=== PATIENT | male | born 1995 | race Hispanic/Latino ===

== ENCOUNTER 2023-06-06 05:43 | Emergency (ER) | payer BC, MEDICAID ==
[~2023-06-06] VITALS: Ht 177.8 cm; Wt 86.2 kg
[2023-06-06 06:39] LABS: APPEARANCE,URINE CLEAR (CLEAR); BILIRUBIN,URINE NEGATIVE (NEGATIVE); COLOR,URINE LIGHT-YELLOW (YELLOW); GLUCOSE, URINE (UA) >=1000 mg/dL (NEGATIVE); KETONES,URINE 20 mg/dL (NEGATIVE); LEUKOCYTE ESTERASE ,URINE NEGATIVE Leu/uL (NEGATIVE); NITRATE,URINE NEGATIVE (NEGATIVE); OCCULT BLOOD,URINE NEGATIVE (NEGATIVE); PROTEIN,URINE NEGATIVE (NEGATIVE); UROBILINOGEN,URINE 0.2 mg/dL (0.2-1.0)
[2023-06-06 06:44] LABS: ADD UA MICROSCOPIC YES
[2023-06-06 06:54] LABS: MUCUS,URINE RARE LPF (None Seen); RBC,URINE 0-1 /HPF (0-1); WBC,URINE 0-1 /HPF (0-1)
[2023-06-06] MEDS ORDERED: ORPHENADRINE CITRATE 30 MG/ML ML IVP ONE (07:00)
[2023-06-06] MEDS ORDERED: MORPHINE 4 MG SYG IVP ONE (07:00)
[2023-06-06 07:07] LABS: ABG OXYGEN SATURATION 17.9 % (95.0-99.0); DEVICE COMMENT VBGJESSE; HCO3,VENOUS BLOOD GAS 24.9 (21.0-28.0); PCO2,VENOUS BLOOD GAS 51 (35-48); PH,VENOUS BLOOD GAS 7.309 (7.350-7.450); PO2,VENOUS BLOOD GAS 15.6 mmHg (35.0-45.0); VENT MODE, BG VBG (ROOM AIR)
[2023-06-06 07:23] LABS: BASOPHILS # (AUTO) 0.04 K/uL (0.00-0.20); BASOPHILS % (AUTO) 0.3 % (0.0-5.0); EOSINOPHILS # (AUTO) 0.02 K/uL (0.00-0.70); EOSINOPHILS % (AUTO) 0.2 % (0.0-8.0); HEMATOCRIT 39.2 % (42-54); IMMATURE GRANULOCYTE ABSOLUTE 0.18 K/uL (0-1); LYMPHOCYTES # (AUTO) 2.5 K/uL (1.0-4.8); LYMPHOCYTES % (AUTO) 20.8 % (21.0-51.0); MEAN CORPUSCULAR HEMOGLOBIN 30.7 pg (27.0-33.0); MEAN CORPUSCULAR HGB CONC 36.2 g/dL (32.0-36.0); MEAN CORPUSCULAR VOLUME 84.8 fL (79-99); MONOCYTES # (AUTO) 1.3 K/uL (0.1-1.0); MONOCYTES % (AUTO) 10.7 % (3.0-13.0); NEUTROPHILS # (AUTO) 7.8 K/uL (1.8-7.7); NEUTROPHILS % (AUTO) 66.5 % (40.0-77.0); PLATELET COUNT (AUTO) 325 K/uL (130-400); RED BLOOD CELL COUNT(AUTO) 4.62 MIL/uL (4.50-6.20); RED CELL DISTRIBUTION WIDTH 11.9 % (11.0-15.5); WHITE BLOOD COUNT (AUTO) 11.8 K/uL (4.8-10.8)
[2023-06-06] MEDS ORDERED: PROMETHAZINE HCL 25 MG/ML 1ML AMPULE IM ONE (07:32)
[2023-06-06 07:42] LABS: BILIRUBIN,TOTAL 0.8 mg/dL (0.2-1.0); CREATININE 0.8 mg/dL (0.5-1.5); POTASSIUM 3.6 mmol/L (3.5-5.1); TOTAL PROTEIN, SERUM 7.5 g/dL (6.0-8.3)
[2023-06-06] MEDS ORDERED: KETOROLAC 30MG VIAL (30MG/ML) IVP ONE (09:30)
[2023-06-06] MEDS ORDERED: FAMOTIDINE 20MG VIAL IV ONE (09:30)
[2023-06-06] MEDS ORDERED: INSULIN HUMULIN R 100 UNIT/ML 3ML IJ ONE (10:00)
[2023-06-06 10:47] VITALS: BP 150/89; PULSE 68; RESP 18; O2SAT 100
== END 2023-06-06 10:53 | disposition home or self-care (01) ==
LOC: EDH 05:43
DX: R10.32 Left lower quadrant pain (principal); M79.18 Myalgia, other site; E11.65 Type 2 diabetes mellitus with hyperglycemia; Z90.49 Acquired absence of other specified parts of digestive tract; Z88.8 Allergy status to other drugs, medicaments and biological substances
CPT/HCPCS: 99284; 74176; 96374; 96375 ×2; 80053; 82803; 85025; 82010; 81001; 36415; 36600; J1815; J3490; J2270; J1885; J2550; J2360

== ENCOUNTER 2025-01-12 22:23 | Emergency (ER) | payer BC, OTHER ==
[~2025-01-12] VITALS: Ht 177.8 cm; Wt 85.7 kg
[2025-01-12 22:31] VITALS: TEMP 98.9
--- NOTE | 2025-01-12 22:35 | ERN ---
General Stated Complaint: NAUSEA, VOMITING ONSET 1400 Time Seen by MD: 22:26 History of Present Illness Initial Comments Patient is a 29-year-old male with diabetes who has had nausea and vomiting for the last 8 hours. During this episode he also had a bowel movement. He is concerned because two weeks ago he was thrown from a horse and after having his right knee repaired he experienced internal bleeding. He is here to be sure that he does not have an intra-abdominal problem more severe than a simple gastroenteritis. He is taking a variety of medications for his diabetes and also lisinopril to protect his kidneys. He is not sure why his kidneys need protecting and for only a short duration of lisinopril. Patient does state that he has chills and sweats but no fevers. Allergies: Coded Allergies: doxycycline (Unverified Allergy, Mild, 01/12/25) HIVES Past Medical History Past Medical History: Diabetes-Type I Medical History Other: Internal bleeding after trauma. Surgical History Other: Right knee arthroplasty. Constitutional: (+) chills, (+) diaphoresis EENTM: (-) eye pain, (-) blurred vision, (-) tearing, (-) double vision, (-) ear pain, (-) ear discharge, (-) nose pain, (-) nose congestion, (-) throat pain, (-) Throat swelling, (-) mouth pain, (-) tooth pain, (-) mouth swelling, (-) other documentation Respiratory: (-) cough, (-) orthopnea, (-) short of breath, (-) stridor, (-) wheezing, (-) other documentation Cardiovascular: (-) chest pain, (-) edema, (-) palpitations, (-) syncope, (-) dyspnea on exertion, (-) other documentation Gastrointestinal/Abdominal: (+) nausea, (+) vomiting Musculoskeletal: (-) Neck pain, (-) back pain, (-) Flank Pain, (-) joint pain, (-) joint swelling, (-) muscle pain, (-) muscle stiffness, (-) gout, (-) other documentation Skin: (-) laceration, (-) contusion, (-) abrasion, (-) abscess, (-) rash, (-) change in color, (-) change in hair, (-) change in nails, (-) diaphoresis, (-) dryness, (-) other documentation Neuro: (-) altered mental status, (-) headache, (-) syncope, (-) paralysis, (-) numbness, (-) seizure, (-) pre-existing deficit, (-) tremors, (-) weakness, (-) dizziness, (-) slurred speech, (-) vertigo, (-) other documentation Physical Exam General Appearance: (+) no apparent distress Orientation: (+) oriented x 3 Head/Face Trauma: No Eye: bilateral eye normal inspection, bilateral eye PERRL, bilateral eye EOMI Ear, Nose, Throat: (+) hearing grossly normal, (+) normal ENT inspection, (+) normal pharynx Neck: (+) normal inspection, (+) supple, (+) full range of motion Respiratory: (+) chest non-tender, (+) lungs clear, (+) well ventilated Heart: (+) no gallop, (+) tachycardia Vascular: (+) no edema Gastrointestinal: (+) soft, (+) non-tender Gastrointestinal Comment Bowel sounds faint and infrequent. Extremities Comment Scar right medial knee healing. Results Laboratory and Microbiology Lab and Micro Result Laboratory Tests Test 01/12/25 22:40 01/13/25 01:00 01/13/25 01:55 01/13/25 02:00 White Blood Count 12.9 K/uL (4.8-10.8) H Red Blood Count 4.96 MIL/uL (4.50-6.20) Hemoglobin 13.6 g/dL (14.0-18.0) L Hematocrit 42.3 % (42-54) Mean Corpuscular Volume 85.3 fL (79-99) Mean Corpuscular Hemoglobin 27.4 pg (27.0-33.0) Mean Corpuscular Hemoglobin Concent 32.2 g/dL (32.0-36.0) Red Cell Distribution Width 13.7 % (11.0-15.5) Platelet Count 210 K/uL (130-400) Mean Platelet Volume 11.6 fL (7.5-10.5) H Immature Granulocyte % (Auto) 0.4 % (0-1) Neutrophils (%) (Auto) 87.7 % (40.0-77.0) H Lymphocytes (%) (Auto) 7.1 % (21.0-51.0) L Monocytes (%) (Auto) 4.4 % (3.0-13.0) Eosinophils (%) (Auto) 0.2 % (0.0-8.0) Basophils (%) (Auto) 0.2 % (0.0-5.0) Neutrophils # (Auto) 11.4 K/uL (1.8-7.7) H Lymphocytes # (Auto) 0.9 K/uL (1.0-4.8) L Monocytes # (Auto) 0.6 K/uL (0.1-1.0) Eosinophils # (Auto) 0.02 K/uL (0.00-0.70) Basophils # (Auto) 0.02 K/uL (0.00-0.20) Absolute Immature Granulocyte (auto 0.05 K/uL (0-1) Nucleated Red Blood Cells 0.0 % (0.0-0.19) White Cell Morphology Comment CONSISTENT W/DIFF Sodium Level 140 mmol/L (136-145) Potassium Level 4.2 mmol/L (3.5-5.1) Chloride Level 104 mmol/L (101-111) Carbon Dioxide Level 30 mmol/L (21-32) Blood Urea Nitrogen 15 mg/dL (7-18) Creatinine 0.7 mg/dL (0.5-1.3) Glomerular Filtration Rate Calc 128 mL/min (>90) Random Glucose 146 mg/dL (70-105) H Total Calcium 9.0 mg/dL (8.5-10.1) Urine Color LIGHT-YELLOW (YELLOW) Urine Appearance CLEAR (CLEAR) Urine pH 6.0 (5.0-8.0) Urine Specific [place] 1.030 (1.001-1.031) Urine Protein NEGATIVE mg/dL (NEGATIVE) Urine Glucose (UA) >=1000 mg/dL (NEGATIVE) H Urine Ketones 20 mg/dL (NEGATIVE) H Urine Occult Blood NEGATIVE (NEGATIVE) Urine Nitrate NEGATIVE (NEGATIVE) Urine Bilirubin NEGATIVE mg/dL (NEGATIVE) Urine Urobilinogen 0.2 mg/dL (0.2-1.0) Urine Leukocyte Esterase NEGATIVE Dinorah/uL Urine RBC 0-1 /HPF (0-1) Urine WBC 0-1 /HPF (0-1) Urine Bacteria None /HPF (None Seen) Blood Gas Specimen Type Arterial Arterial Blood pH 7.404 (7.350-7.450) Arterial Blood Partial Pressure CO2 35 mmHg (35-48) Arterial Blood Partial Pressure O2 80.9 mmHg (83.0-108.0) L Arterial Blood HCO3 21.2 mmol/L (21.0-28.0) Arterial Blood Oxygen Saturation 95.4 % (94.0-98.0) Arterial Blood Base Excess -2.9 mmol/L (-2.0-3.0) L Hemoglobin (Blood Gas) 12.0 g/dL (13.5-17.5) L Sodium (Blood Gas) 138 MMOL/L (136-145) Bedside Potassium (Blood Gas) 4.1 MMOL/L (3.4-4.5) Bedside Chloride (Blood Gas) 105 MMOL/L (98-107) Bedside Glucose (Blood Gas) 110 MG/DL (65-95) H Bedside Ionized Calcium (Blood Gas) 1.22 MMOL/L (1.15-1.33) Bedside Lactic Acid (Blood Gas) 2.39 MMOL/L (0.36-0.75) H Blood Gas Temperature 37.0 CELSIUS (35.5-37.0) Blood Gas Vent Mode RA (ROOM AIR) FiO2 21.0 % Blood Gas Specimen Comment RT RAD Hemoglobin A1c 6.7 % (4.0-6.0) H Estimated Average Glucose (eAG) 146 mg/dL (70-126) H Whole Blood Ketones Quantitative 0.2 mmol/L (0.0-0.6) MDM Patient does have what could be a simple gastroenteritis; however, given his recent history of internal bleeding and decreased bowel sounds we have to do a more extensive workup including imaging. I have ordered the relevant labs and a CT scan. Patient's CBC has elevated white count with a left shift but his red cell mass is fine. His BMP is normal. He feels better but still eructation followed by emesis. He has not voided for his urine sample but he will I provided him with a chimney. CT scan is consistent with gastroenteritis. I will give him another L of fluid and discharge him with p.o. Zofran. If if he has a urinary tract infection he will also be prescribed antibiotics. Patient's urine shows greater than a 1000 blood glucose. Talking to the patient further he states that he has been on data good flows in it was recently DC he had and the hip put him on empagliflozin and p.o. Glatopa zone to control his blood sugar. I will order blood hemoglobin A1c levels and ketones and an ABG. Patient maybe in DKA. I also noticed the patient was on sucralfate and proton pump inhibitor so I inquired as to why and he said he had ulcers that were diagnosed by endoscopy a month ago when his in his esophagus and one is in his stomach. He does not think that there were biopsies present he does not think he was placed on an antibiotic after the procedure. I will test his stool for he will occur pylori antigen. Patient is not in DKA based on lack of ketones in his blood stream and a normal ABG. He still has stomach cramps I will discharge him home with Bentyl. If patient is able to give us a stool sample that would be great otherwise he can follow-up with his primary care doctor for that test. ED Course Orders Procedure Category Date Status Time Cbc With Differential LAB 01/12/25 Complete 22:35 Urinalysis Profile LAB 01/12/25 Complete 22:35 Ct Abdomen/Pelvis CT 01/12/25 Resulted W/Contrast 22:35 Lactated Ringers PHA 01/12/25 Complete 1000ml (Lactated 23:00 Basic Metabolic Panel LAB 01/12/25 Complete 22:35 Ondansetron 4mg Inj PHA 01/13/25 Complete (Zofran 4mg Inj) 00:00 Ondansetron 4mg Inj PHA 01/12/25 Complete (Zofran 4mg Inj) 23:35 Iohexol (Omnipaque) PHA 01/12/25 Complete 23:36 Lactated Ringers PHA 01/13/25 Complete 1000ml (Lactated 01:02 Ketone Blood LAB 01/13/25 Complete Quantitative 01:45 Hemoglobin A1c LAB 01/13/25 Complete 01:45 Arterial Blood Gas RT 01/13/25 Transmitted 01:45 H. Pylori Antigen LAB 01/13/25 Logged Stool 01:53 Arterial Blood Gas LAB 01/13/25 Complete Arterial + 01:55 Current Medications Medications (Trade) Dose Ordered Sig/Alessandro Route PRN Reason Start Time Stop Time Status Last Admin Dose Admin Iohexol (Omnipaque) 75 ml STK-MED ONCE IV 01/12/25 23:36 01/12/25 23:41 DC Lactated Ringer's 1,000 ml @ 0 mls/hr ONCE ONCE IV 01/12/25 23:00 01/12/25 23:01 DC 01/12/25 22:51 Lactated Ringer's (Lactated Ringers 1000ml) 1,000 ml BOLUS STAT IV 01/13/25 01:02 01/13/25 01:05 DC 01/13/25 01:27 Ondansetron HCl (zoFRAN 4MG INJ) 4 mg ONCE ONCE IVP 01/13/25 00:00 01/13/25 00:01 DC 01/12/25 23:40 Ondansetron HCl (zoFRAN 4MG INJ) 4 mg STK-MED ONCE .ROUTE 01/12/25 23:35 01/12/25 23:41 DC Vital Signs Date Time Temp Pulse Resp B/P (MAP) Pulse Ox O2 Delivery O2 Flow Rate FiO2 01/13/25 01:39 110 18 122/78 99 Room Air* 0 01/13/25 00:26 112 19 128/87 97 Room Air* 0 01/12/25 22:44 122 19 138/90 97 Room Air* 0 21 01/12/25 22:31 99.0 124 18 133/88 98 Room Air 0 DX & DISP Disposition: Discharge Departure Impression: Primary Impression: Nausea & vomiting Condition: Stable Scripts Dicyclomine HCl (Bentyl) 10 Mg Cap 1 CAP PO Q6HPRN PRN for irritable bowel symptoms for 25 Days, #100 CAP 0 Refills Prov: BENIGNO MONTELONGO MD 01/13/25 BENIGNO MONTELONGO MD Jan 12, 2025 22:35
[2025-01-12 22:48] LABS: BASOPHILS # (AUTO) 0.02 K/uL (0.00-0.20); BASOPHILS % (AUTO) 0.2 % (0.0-5.0); EOSINOPHILS # (AUTO) 0.02 K/uL (0.00-0.70); EOSINOPHILS % (AUTO) 0.2 % (0.0-8.0); HEMATOCRIT 42.3 % (42-54); IMMATURE GRANULOCYTE ABSOLUTE 0.05 K/uL (0-1); LYMPHOCYTES # (AUTO) 0.9 K/uL (1.0-4.8); LYMPHOCYTES % (AUTO) 7.1 % (21.0-51.0); MEAN CORPUSCULAR HEMOGLOBIN 27.4 pg (27.0-33.0); MEAN CORPUSCULAR HGB CONC 32.2 g/dL (32.0-36.0); MEAN CORPUSCULAR VOLUME 85.3 fL (79-99); MONOCYTES # (AUTO) 0.6 K/uL (0.1-1.0); MONOCYTES % (AUTO) 4.4 % (3.0-13.0); NEUTROPHILS # (AUTO) 11.4 K/uL (1.8-7.7); NEUTROPHILS % (AUTO) 87.7 % (40.0-77.0); PLATELET COUNT (AUTO) 210 K/uL (130-400); RED BLOOD CELL COUNT(AUTO) 4.96 MIL/uL (4.50-6.20); RED CELL DISTRIBUTION WIDTH 13.7 % (11.0-15.5); WHITE BLOOD COUNT (AUTO) 12.9 K/uL (4.8-10.8)
[2025-01-12] MEDS: LACTATED RINGERS 1000ML 1,000 ML IV ONE (22:51)
[2025-01-12 22:58] LABS: CREATININE 0.7 mg/dL (0.5-1.3); POTASSIUM 4.2 mmol/L (3.5-5.1)
--- NOTE | 2025-01-12 23:00 | NUR ---
PT NOT READY, PENDING LABS FOR CT
[2025-01-12 23:21] LABS: WBC MORPHOLOGY CONSISTENT W/DIFF
[2025-01-12] MEDS ORDERED: IOHEXOL-350 75 ML VIAL IV ONE (23:36)
[2025-01-12] MEDS: ondanSETRON 4MG INJ IVP ONE (23:40)
[2025-01-12] MEDS: ondanSETRON 4MG INJ ONE (23:43)
--- NOTE | 2025-01-12 23:43 | NUR ---
PT TO CT
--- NOTE | 2025-01-13 00:29 | HMCIMG ---
CT ABDOMEN/PELVIS W/CONTRAST HISTORY: Abdominal pain COMPARISON: 06/06/2023 TECHNIQUE: Multiple sequential axial images of the abdomen and pelvis were obtained from the dome of the diaphragm through symphysis pubis. Patient was not given contrast through intravenous route. Oral contrast was not given. FINDINGS: No pleural effusion is seen bilaterally. There is no evidence of parenchymal disease or pulmonary nodule of the visualized lower lungs. Degenerative changes of the thoracolumbar spine are present. The heart is not enlarged. Liver is enlarged measuring 17.3 cm. There are small bilateral renal cysts with right measuring 12 mm. There is fluid-filled small bowel loops and colon may be related to enterocolitis. The liver, spleen, adrenal glands and pancreas are unremarkable. There is no evidence of hydronephrosis bilaterally. No evidence of renal stone is seen. Fecal material is seen in the colon. There are normal size retroperitoneal and mesenteric lymph nodes. No ascites is seen. Appendix is not seen. Pelvic sidewalls are symmetric bilaterally. Bladder is moderately distended. IMPRESSION: 1. Fluid-filled small bowel loops and colon may be related to enterocolitis. CT was performed with one or more following dose reduction techniques: automated exposure control, adjustment of the mA and kv according to patient's size, or use of a iterative reconstruction technique.
[2025-01-13] MEDS: LACTATED RINGERS 1000ML IV STA (01:27)
[2025-01-13 01:28] LABS: ADD UA MICROSCOPIC YES; APPEARANCE,URINE CLEAR (CLEAR); BILIRUBIN,URINE NEGATIVE (NEGATIVE); COLOR,URINE LIGHT-YELLOW (YELLOW); GLUCOSE, URINE (UA) >=1000 mg/dL (NEGATIVE); KETONES,URINE 20 mg/dL (NEGATIVE); LEUKOCYTE ESTERASE ,URINE NEGATIVE Leu/uL (NEGATIVE); NITRATE,URINE NEGATIVE (NEGATIVE); OCCULT BLOOD,URINE NEGATIVE (NEGATIVE); PROTEIN,URINE NEGATIVE (NEGATIVE); UROBILINOGEN,URINE 0.2 mg/dL (0.2-1.0)
[2025-01-13 01:30] LABS: MUCUS,URINE RARE LPF (None Seen); RBC,URINE 0-1 /HPF (0-1); WBC,URINE 0-1 /HPF (0-1)
[2025-01-13 01:57] LABS: ABG BASE EXCESS -2.9 mmol/L (-2.0-3.0); ABG HCO3 21.2 mmol/L (21.0-28.0); ABG OXYGEN SATURATION 95.4 % (94.0-98.0); ABG PCO2 35 mmHg (35-48); ABG PH 7.404 (7.350-7.450); CARBON MONOXIDE 0.2 % (0.5-1.5); DEVICE COMMENT RT RAD; HHb 4.6; PO2, ARTERIAL BG 80.9 mmHg (83.0-108.0); VENT MODE, BG RA (ROOM AIR)
[2025-01-13 02:17] LABS: HEMOGLOBIN A1C 6.7 % (4.0-6.0)
[2025-01-13] MEDS ORDERED: DICY10 PO (02:42)
[2025-01-13] MEDS: ketOROlac 30MG VIAL (30MG/ML) IVP ONE (03:14)
[2025-01-13] MEDS: DICYCLOMINE HCL 20 MG TAB PO ONE (03:14)
[2025-01-13 03:50] VITALS: BP 128/64; PULSE 118; RESP 18; O2SAT 99
== END 2025-01-13 03:51 | disposition home or self-care (01) ==
LOC: EDBD 22:23 → EDH 22:23
DX: R11.2 Nausea with vomiting, unspecified (principal); E10.9 Type 1 diabetes mellitus without complications; Z88.1 Allergy status to other antibiotic agents; Z96.651 Presence of right artificial knee joint
CPT/HCPCS: 99285; 74177; 96374; 96361 ×2; 82947; 83036; 80048; 82803; 85025; 83605; 82010; 87338; 81001; 36415 ×2; 82435; 84132; 84295; 85018; 96375; 36600; J7120; J2405; Q9967; J1885